=== PATIENT | male | born 1980 | race Two or more races ===

== ENCOUNTER 2024-09-26 09:52 | Emergency (ER) | payer OTHER ==
[~2024-09-26] VITALS: Ht 175.3 cm; Wt 70.3 kg
[2024-09-26] MEDS ORDERED: CEFTRIAXONE SODIUM 1,000 MG VIAL ONE (10:25)
[2024-09-26] MEDS ORDERED: DIPHTH,PERTUSS(ACELL),TET VAC 0.5 ML SYRINGE IM ONE ×2 (10:25→10:30)
[2024-09-26] MEDS ORDERED: LIDOCAINE HCL 1% 10ML VIAL ONE (10:26)
[2024-09-26] MEDS ORDERED: CEFTRIAXONE SODIUM 1,000 MG VIAL IM ONE (10:30)
[2024-09-26 10:44] VITALS: BP 111/74; O2SAT 100
== END 2024-09-26 10:46 | disposition home or self-care (01) ==
LOC: ER 10:08
DX: S61.221A Laceration with foreign body of left index finger without damage to nail, initial encounter (principal); W26.8XXA Contact with other sharp object(s), not elsewhere classified, initial encounter; Y93.89 Activity, other specified; Y92.89 Other specified places as the place of occurrence of the external cause; Z91.013 Allergy to seafood
CPT/HCPCS: 90471; 90714; J1670